=== PATIENT | female | born 1975 | race Caucasian/White ===

== ENCOUNTER 2018-06-11 09:50 | Emergency (ER) | payer MEDICAID ==
[~2018-06-11] VITALS: Ht 172.7 cm; Wt 83.0 kg
[2018-06-11 09:58] VITALS: BP 124/74
== END 2018-06-11 11:38 | disposition home or self-care (01) ==
LOC: ER 09:51
DX: S93.401A Sprain of unspecified ligament of right ankle, initial encounter (principal); W22.8XXA Striking against or struck by other objects, initial encounter; Y93.23 Activity, snow (alpine) (downhill) skiing, snowboarding, sledding, tobogganing and snow tubing; Y92.89 Other specified places as the place of occurrence of the external cause; Y99.8 Other external cause status
CPT/HCPCS: 29515; 73610; 99283

== ENCOUNTER 2019-03-15 19:07 | Emergency (ER) | payer MEDICAID ==
[~2019-03-15] VITALS: Ht 172.7 cm; Wt 75.0 kg
[2019-03-15] MEDS ORDERED: normal saline 1000ML IV soln IVB ONE (21:15)
[2019-03-15] MEDS ORDERED: ondansetron/PF 4mg/2ml inj IV ONE (21:15)
--- NOTE | 2019-03-15 21:34 | NUR ---
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
[2019-03-15 21:46] LABS: BASOPHILS % (AUTO) 0.3 % (0-1); EOSINOPHILS # (AUTO) 0.1 X10'3 (0-0.9); EOSINOPHILS % (AUTO) 1.3 % (0-6); HEMATOCRIT 42.6 % (35.0-45.0); HEMOGLOBIN 14.6 g/dl (12.0-16.0); LYMPHOCYTES # (AUTO) 1.4 X10'3 (1.1-4.8); LYMPHOCYTES % (AUTO) 13.6 % (21-51); MEAN CORPUSCULAR HEMOGLOBIN 34.6 PG (27.0-31.0); MEAN CORPUSCULAR HGB CONC 34.3 g/dL (33.0-36.5); MEAN CORPUSCULAR VOLUME 100.8 FL (78-98); MEAN PLATELET VOLUME 7.5 FL (7.4-10.4); MONOCYTES # (AUTO) 0.5 X10'3 (0-0.9); MONOCYTES % (AUTO) 4.8 % (2-12); NEUTROPHILS # (AUTO) 8.3 X10'3 (1.8-7.7); PLATELET COUNT 268 X10'3 (140-440); RED BLOOD COUNT 4.22 X10'6 (4.20-5.60); RED CELL DISTRIBUTION WIDTH 13.2 % (11.5-14.5); URINE HCG NEGATIVE (NEG); WHITE BLOOD COUNT 10.4 X10'3 (4.5-11.0)
[2019-03-15] MEDS: morphine 4 MG/ML inj SYRINge IV PRN ×2 (21:46→22:52)
[2019-03-15 21:47] LABS: CLARITY,URINE SLIGHTLY CLOUDY (Clear); COLOR,URINE YELLOW (Yellow); GLUCOSE, URINE NEGATIVE (Neg); KETONES,URINE NEGATIVE (Neg); LEUKOCYTE ESTERASE ,URINE NEGATIVE (Neg); NITRITES, URINE POSITIVE (Neg); OCCULT BLOOD,URINE MODERATE (Neg); PROTEIN,URINE NEGATIVE (Neg); UROBILINOGEN,URINE 0.2 E.U/dL (0.2-1.0)
[2019-03-15 21:48] LABS: UA COLLECTION TYPE CLN CATCH MIDSTREAM
[2019-03-15 21:53] LABS: BACTERIA,URINE 4+ /HPF (Neg); MUCUS STRANDS MANY /LPF (Neg); RBC,URINE 0-2 /HPF (0-2); SQUAMOUS EPITHELIAL CELL,UR MANY /LPF (FEW); WBC CLUMPS,URINE MODERATE /HPF (NEGATIVE)
--- NOTE | 2019-03-15 21:54 | NUR ---
taken to ct. reprots pain is 10 out of 10. given msiv and zofran and 1 liter ns bolus started. pt able to ambluate to br indep with steady slow gait, but was hunched over d/t severe left back pain. vss.
--- NOTE | 2019-03-15 21:56 | NUR ---
urine rejected for culture.
[2019-03-15] MEDS ORDERED: CefTRIAXone/D5W-Rocephin 1gm 50 ML IV ONE (22:00)
[2019-03-15] MEDS ORDERED: iohexol 300mg/ml 100ml inj. ONE (22:03)
[2019-03-15 22:20] LABS: ALANINE AMINOTRANSFERASE 31 U/L (12-78); ALBUMIN/GLOBULIN RATIO 1.1 (1.1-1.5); ALKALINE PHOSPHATASE 54 IU/L (46-116); ANION GAP 7 (8-16); ASPARTATE AMINO TRANSFERASE 27 U/L (10-37); BILIRUBIN,TOTAL 0.2 MG/DL (0.1-1.0); BLOOD UREA NITROGEN 10 MG/DL (7-18); BUN/CREATININE RATIO 10.4 (6.6-38.0); CALCIUM 9.1 MG/DL (8.5-10.1); CHLORIDE 109 MMOL/L (99-107); CREATININE 0.96 MG/DL (0.40-0.90); GLUCOSE 118 MG/DL (70-104); POTASSIUM 4.9 MMOL/L (3.5-5.1); SODIUM 145 MMOL/L (135-145); TOTAL CARBON DIOXIDE 29.3 MMOL/L (24-32); TOTAL PROTEIN 7.8 G/DL (6.4-8.2); eGFR 63 ML/MIN
[2019-03-15] MEDS ORDERED: HYDR-4383 PO (23:06)
--- NOTE | 2019-03-15 23:09 | NUR ---
DR JUNG TALKING WITH PT AND FAMMILY ABOUT DC INSTRUCTIONS AND DIAGNOSIS
[2019-03-15] MEDS ORDERED: NITR100C6 PO (23:10)
[2019-03-15] MEDS ORDERED: morphine 4 MG/ML inj SYRINge IV ONE (23:35)
[2019-03-15 23:49] VITALS: BP 128/72
== END 2019-03-15 23:51 | disposition home or self-care (01) ==
LOC: ER 19:07
DX: S22.42XA Multiple fractures of ribs, left side, initial encounter for closed fracture (principal); N39.0 Urinary tract infection, site not specified; F41.9 Anxiety disorder, unspecified; F10.99 Alcohol use, unspecified with unspecified alcohol-induced disorder; Z79.899 Other long term (current) drug therapy; W18.39XA Other fall on same level, initial encounter; Y93.89 Activity, other specified; Y92.89 Other specified places as the place of occurrence of the external cause; Y99.8 Other external cause status; Y90.9 Presence of alcohol in blood, level not specified
CPT/HCPCS: 36415; 71046; 71260; 74177; 80053; 81001; 81025; 85025; 96365; 96375; 96376; 99284; J0696; J2270; J2405; J7030; Q9967